=== PATIENT | male | born 2000 ===

== ENCOUNTER 2022-06-20 12:20 | Emergency (ER) | payer SELFPAY ==
[2022-06-20] MEDS ORDERED: MORPHINE 4 MG/1 ML INJ IM ONE (13:12)
[2022-06-20] MEDS ORDERED: ONDANSETRON 4 MG ODT TAB PO ONE (13:12)
[2022-06-20] MEDS ORDERED: ONDANSETRON 4 MG/2 ML INJ IV ONE ×2 (13:15→16:26)
[2022-06-20] MEDS ORDERED: MORPHINE 4 MG/1 ML INJ IV ONE ×2 (13:15→16:26)
[2022-06-20 13:19] VITALS: BP 121/75
[2022-06-20] MEDS ORDERED: SODIUM CHLORIDE 0.9% 1000 ML 1,000 ML IV ONE (13:42)
--- NOTE | 2022-06-20 14:18 | XRay Report ---
XR foot 3+V LT INDICATION / CLINICAL INFORMATION: pain and swelling. COMPARISON: None available. FINDINGS: BONES/JOINT(S): No acute fracture or subluxation. No significant degenerative changes. No focal bone erosions or focal osteopenia to suggest inflammatory arthropathy. SOFT TISSUES: No significant abnormality. ADDITIONAL FINDINGS: None. Signer Name: Huan Espinoza MD Signed: 06/20/2022 2:13 PM Workstation Name: [email or web address]
--- NOTE | 2022-06-20 14:18 | XRay Report ---
XR ankle 3+V LT INDICATION: fall, pain and swelling. COMPARISON: None available. FINDINGS: There is a moderately displaced medial malleolus fracture with medial displacement of the distal frac ture fragment. There is a second comminuted oblique fracture of the distal tibial shaft and a mildly displaced transverse fracture of the distal fibular shaft. Signer Name: Huan Espinoza MD Signed: 06/20/2022 2:14 PM Workstation Name: [email or web address]
--- NOTE | 2022-06-20 14:23 | XRay Report ---
LEFT TIBIA AND FIBULA 2 VIEWS INDICATION / CLINICAL INFORMATION: fall. COMPARISON: None available. FINDINGS: BONES / JOINT(S): Longitudinal fracture extending throughout the tibial diaphysis into the metaphysis where there is mild comminution. There is also avulsion of the medial malleolus and a transverse fra cture at the distal tibial diaphysis. No significant arthritis. SOFT TISSUES: Soft tissue swelling greater distally. ADDITIONAL FINDINGS: None. Signer Name: Josemanuel Gu MD Signed: 06/20/2022 2:18 PM Workstation Name: [id number]
--- NOTE | 2022-06-20 15:49 | Cat Scan Report ---
CT lumbar spine wo con INDICATION / CLINICAL INFORMATION: 21 years Male; fall. TECHNIQUE: Axial CT images of the lumbar spine were obtained with sagittal and coronal reconstructions. All CT s cans at this location are performed using CT dose reduction for ALARA by means of automated exposure control. COMPARISON: None available. FINDINGS: POST-SURGICAL CHANGES: None. ALIGNMENT: There is no significant spondylolisthesis or scoliosis of the lumbar spine. VERTEBRAE: There is no evidence of acute compression fracture of the lumbar spine. The bone mineraliz ation is appropriate. INTERVERTEBRAL DISCS: There is a broad-based disc bulge at L5-S1 which appears greater on the left wi th mild encroachment on the left lateral recess. Additionally, there is mild neural foraminal narrowi ng bilaterally. There is a minimal a disc bulge at L4-L5. The neural foramen appear patent at. The upper lumbar disc spaces are unremarkable. PARASPINAL SOFT TISSUES: No significant abnormality. ADDITIONAL FINDINGS: None. IMPRESSION: 1. There is no CT evidence of acute fracture involving the lumbar spine. 2. The broad-based disc bulge at L5-S1 appears greater on the left with mild encroachment on the left lateral recess. Signer Name: Eliud Awan MD Signed: 06/20/2022 3:44 PM Workstation Name: [id number]
--- NOTE | 2022-06-20 15:54 | Cat Scan Report ---
CTA PELVIS AND LOWER EXTREMITIES WITH CONTRAST INDICATION / CLINICAL INFORMATION: fracture with decreaSE PULSATION. TECHNIQUE: Axial CT images were obtained through the abdomen, pelvis and lower extremities after inje ction of 100 cc Omnipaque 350 IV contrast. 3 plane MIP / 3D reconstructions were produced. All CT sca ns at this location are performed using CT dose reduction for ALARA by means of automated exposure co ntrol. COMPARISON: Left tib-fib radiographs dated June 20, 2022 FINDINGS: CTA PELVIS: RIGHT: - Common Iliac Artery: No significant abnormality. - Internal Iliac Artery: No significant abnormality. - External Iliac Artery: No significant abnormality. LEFT: - Common Iliac Artery: No significant abnormality. - Internal Iliac Artery: No significant abnormality. - External Iliac Artery: No significant abnormality. CTA LOWER EXTREMITIES: RIGHT LOWER EXTREMITY: - Common Femoral Artery: No significant abnormality. - Superficial Femoral Artery: No significant abnormality. - Profunda Femoral Artery: No significant abnormality. - Popliteal Artery: No significant abnormality. - Anterior Tibial Artery: No significant abnormality. - Tibioperoneal Trunk: No significant abnormality. - Posterior Tibial Artery: No significant abnormality. - Peroneal Artery: No significant abnormality. - Ankle runoff: Three vessel. LEFT LOWER EXTREMITY: - Common Femoral Artery: No significant abnormality. - Superficial Femoral Artery: No significant abnormality. - Profunda Femoral Artery: No significant abnormality. - Popliteal Artery: No significant abnormality. - Anterior Tibial Artery: No significant abnormality. - Tibioperoneal Trunk: No significant abnormality. - Posterior Tibial Artery: In approximation with the comminuted fracture with opacification distal to the fracture. - Peroneal Artery: In approximation with the comminuted fracture with opacification distal to the fra cture. - Ankle runoff: Three vessel. NONTARGET STRUCTURES: PELVIS:No significant abnormality. LOWER EXTREMITIES:Soft tissue swelling about the below mentioned fracture. SKELETAL: Vertically oriented fracture through the central portion of left tibial diaphysis which ext ends posteriorly terminating as a markedly comminuted fracture of the tibial plafond. There is a disp laced fracture through the medial malleolus and a incomplete fracture through the distal fibular diap hysis. ADDITIONAL FINDINGS: None. IMPRESSION: 1. Fracture of the left distal tibia and fibula as above without abrupt termination of the left lower extremity arteries. Of note the anterior tibial and peroneal arteries do come into close approximati on of the comminuted fracture; however, these vessels appear opacified beyond the fracture. Signer Name: Wayne Haynes DO Signed: 06/20/2022 3:50 PM Workstation Name: [email or web address]
--- NOTE | 2022-06-20 16:45 | Emergency Department Report ---
ED General Adult HPI - General Chief complaint: Extremity Injury, Lower Stated complaint: FRACTURE PUI?: No Time Seen by Provider: 06/20/22 13:42 Source: patient, family Mode of arrival: Ambulatory Limitations: No Limitations, Language Barrier - History of Present Illness Initial comments: l ankle pain/deformity. pms intact. no loc. pt fell from 9 feet ladder, laned on his left ankle, no open wound , no head injury no loc -: Sudden, minutes(s) Location: lower extremity Severity scale (0 -10): 10 Quality: aching Consistency: constant Worsens with: movement Associated Symptoms: denies: denies other symptoms, confusion, chest pain, cough Treatments Prior to Arrival: none - Related Data Allergies Allergy/AdvReac Type Severity Reaction Status Date / Time No Known Allergies Allergy Unverified 06/20/22 13:13 ED Review of Systems ROS: Stated complaint: FRACTURE Other details as noted in HPI Constitutional: denies: chills, fever Eyes: denies: eye pain, eye discharge, vision change ENT: denies: ear pain, throat pain Respiratory: denies: cough, shortness of breath, wheezing Cardiovascular: denies: chest pain, palpitations Endocrine: no symptoms reported Gastrointestinal: denies: abdominal pain, nausea, diarrhea Genitourinary: denies: urgency, dysuria Musculoskeletal: denies: back pain, joint swelling, arthralgia Skin: denies: rash, lesions Neurological: denies: headache, weakness, paresthesias Psychiatric: denies: anxiety, depression Hematological/Lymphatic: denies: easy bleeding, easy bruising ED Past Medical Hx - Past Medical History Previous Medical History?: No Hx Hypertension: No Hx CVA: No ED Physical Exam - General Limitations: No Limitations, Language Barrier General appearance: alert, in no apparent distress - Head Head exam: Present: atraumatic, normocephalic - Eye Eye exam: Present: normal appearance - ENT ENT exam: Present: mucous membranes moist - Neck Neck exam: Present: normal inspection - Respiratory Respiratory exam: Present: normal lung sounds bilaterally. Absent: respiratory distress - Cardiovascular Cardiovascular Exam: Present: regular rate, normal rhythm. Absent: systolic murmur, diastolic murmur, rubs, gallop - GI/Abdominal GI/Abdominal exam: Present: soft, normal bowel sounds - Rectal Rectal exam: Present: deferred - Extremities Exam Extremities exam: Present: normal inspection - Expanded Lower Extremity Exam Left Lower Leg exam: Present: tenderness Ankle exam: Present: tenderness, swelling, deformity Neuro vascular tendon exam: Present: abnormal cap refill. Absent: motor deficit, sensory deficit, tendon deficit - Back Exam Back exam: Present: normal inspection - Neurological Exam Neurological exam: Present: alert, oriented X3 - Psychiatric Psychiatric exam: Present: normal affect, normal mood - Skin Skin exam: Present: warm, dry, intact, normal color. Absent: rash ED Course Vital Signs 06/20/22 13:17 Temperature 98 F Pulse Rate 91 H Respiratory 16 Rate Blood Pressure 121/75 [Left] O2 Sat by Pulse 100 Oximetry ED Medical Decision Making - Radiology Data Radiology results: report reviewed, image reviewed - Medical Decision Making x ray showed comminuted closed fracture , couldn;t pick a pulse withi doppler but reasonable blood flow, CTA showed normal intact vascularity pain controlled, fludis given sp[jhon with [place] accepted transfer , no ortho coverage Critical care attestation.: If time is entered above; I have spent that time in minutes in the direct care of this critically ill patient, excluding procedure time. ED Disposition Clinical Impression: Ankle fracture, left Disposition: 51 HOSPICE/MEDICAL FACILITY Is pt being admited?: No Does the pt Need Aspirin: No Condition: Fair Referrals: JESUS RANDLE MD [Primary Care Provider] - 3-5 Days
[2022-06-20] MEDS ORDERED: HYDROmorphone 1 MG/1 ML INJ IM ONE (17:30)
[2022-06-20 18:06] LABS: Basophils # (Auto) 0.1 K/mm3 (0.0-0.1); Basophils % (Auto) 0.8 % (0.0-1.8); Eosinophils # (Auto) 0.1 K/mm3 (0.0-0.4); Eosinophils % (Auto) 1.1 % (0.0-4.3); Hematocrit 38.9 % (35.5-45.6); Hemoglobin 13.2 gm/dl (11.8-15.2); Lymphocytes # (Auto) 1.9 K/mm3 (1.2-5.4); Mean Corpuscular HGB Conc 34 % (32-34); Mean Corpuscular Volume 90 fl (84-94); Monocytes # (Auto) 0.6 K/mm3 (0.0-0.8); Monocytes % (Auto) 7.6 % (0.0-7.3); Platelet Count 276 K/mm3 (140-440); Red Blood Count 4.34 M/mm3 (3.65-5.03); Red Cell Distribution Width 13.2 % (13.2-15.2)
[2022-06-20 18:18] LABS: Alanine Aminotransferase 25 units/L (7-56); Albumin 4.6 g/dL (3.9-5); BUN/Creatinine Ratio 15; Blood Urea Nitrogen 12 mg/dL (9-20); Calcium 8.9 mg/dL (8.4-10.2); Hemolysis Index 5
== END 2022-06-21 03:00 | disposition hospice, inpatient (51) ==
LOC: ED 12:20
DX: S82.892A Other fracture of left lower leg, initial encounter for closed fracture (principal); X58.XXXA Exposure to other specified factors, initial encounter; Y93.89 Activity, other specified; Y92.89 Other specified places as the place of occurrence of the external cause; Y99.8 Other external cause status
CPT/HCPCS: 29515; 36415; 72131; 73590; 73610; 73630; 73706; 80053; 85025; 96361; 96372; 96374; 96375; 96376; 99285; J1170; J2270; J2405; J7030; Q9967; 99284